=== PATIENT | female | born 1975 | race Caucasian/White ===

== ENCOUNTER → 2019-01-03 | Emergency (ER) | payer OTHER ==
[~2019-01-03] VITALS: Ht 152.4 cm; Wt 77.1 kg
[~2019-01-03] MED LIST: AMICAR500 MG; DESMOPRESS4 MCG/1 ML; DOLOGESIC-DF 51 EACH PO; FLAGYL I.V500 MG/100; NEXIUM40 MG/PACK PO; ORPH100T PO; PROTONIX20 MG; PROTONIX40 MG; SEPTRA DS TABLE1 TAB; SKELAXIN800 MG PO; TRANEXAMIC ACI650 MG; ULTRACET PO; ULTRAM50 MG PO; VISTARIL50 MG; ZANTAC150 M3; ZANTAC300 MG PO; [UNRECOGNIZED DRUG - OTHER]
== END | disposition left against medical advice (07) ==
LOC: ER 17:09
DX: Z53.20 Procedure and treatment not carried out because of patient's decision for unspecified reasons (principal)

== ENCOUNTER 2021-05-04 08:00 | Outpatient (CLI) | payer OTHER | END 2021-05-04 08:30 | disposition home or self-care (01) | LOC: PPH VACUNA 08:00 | PROVIDERS: ATTEND Emergency Medicine Pediatric Emergency Medicine | DX: Z23 Encounter for immunization (principal) ==

== ENCOUNTER → 2021-12-16 | Emergency (ER) | payer OTHER ==
[~2021-12-16] VITALS: Ht 152.4 cm; Wt 74.8 kg
[~2021-12-16] MED LIST changes: +PEPCID AC20 MG PO
== END | disposition home or self-care (01) ==
LOC: ER 12:13
DX: U07.1 COVID-19 (principal); Z88.8 Allergy status to other drugs, medicaments and biological substances

== ENCOUNTER 2021-12-25 06:33 | Emergency (ER) | payer OTHER ==
[~2021-12-25] VITALS: Ht 152.4 cm; Wt 74.8 kg
== END 2021-12-25 07:37 | disposition home or self-care (01) ==
LOC: ER 06:33
DX: U07.1 COVID-19 (principal); Z88.0 Allergy status to penicillin